=== PATIENT | female | born 1935 | race Caucasian/White ===

== ENCOUNTER 2025-04-03 13:39 | Outpatient (CLI) | payer MEDICARE, SELFPAY ==
--- OUTSIDE RECORDS SUMMARY | 2025-04-03 13:45 | XMS_ITS | Clinical Summary ---
Author Organization Healthcare Address [address] [place] [address] Care Team Providers Care Clinical Nursing Professor Name Role Phone Bravo Marcano MD Primary Care Provider Allergies Active Allergy Reactions Criticality Noted Date Comments Cefaclor Rash Low 02/05/2015 Gluten Meal Other - please document in the comment field Low 02/06/2015 Intestinal distress, lower GI symptoms, 'sores' across the arms. Iodinated Contrast Media Other - please document in the comment field Low 01/10/2025 Iv Contrast Rash Low 05/11/2018 Patient and family reported possible rash to IV contrast, patient received contrast in ED with no rash per RN. Used steroids + diphenhydramine with IV contrast Penicillins Other - please document in the comment field Low 02/05/2015 vomiting Red Dye #40 (Allura Red) Unknown - Patient states they do not know rxn details Low 01/06/2021 Doctor told her to stay away from it, unsure of reaction. Statins Other - please document in the comment field Low 03/08/2015 Multiple statins have caused tongue lesions (per patient during dental exam) and makes her mean and have mood swings. Tolerates pravastatin Sulfa Drugs Shortness of breath High 11/15/2024 Medications cholecalciferol (Vitamin D-3) 25 MCG (1000 UT) tablet Take 1 tablet (1,000 Units) by mouth 1 (one) time each day. Patient reports she takes 5-6 per week 02/20/2020 Active cyanocobalamin (Vitamin B-12) 1000 MCG tablet Take 1 tablet (1,000 mcg) by mouth 1 (one) time each day. 02/03/2018 Active Synthroid 100 MCG tablet Take 1 tablet (100 mcg) by mouth 1 (one) time each day. 11/12/2021 Active Probiotic Product (DIGESTIVE ADVANTAGE PO) Take 1 capsule by mouth 1 (one) time each day before lunch. Active ascorbic acid (Vitamin C) 1000 MG tablet Take 0.5 tablets (500 mg) by mouth 1 (one) time each day. Active CALCIUM PO Take by mouth. Active B Complex Vitamins (B COMPLEX PO) Take by mouth. Active Eliquis 5 MG tablet Take 1 tablet (5 mg) by mouth 2 (two) times a day. 03/25/2024 Active hydrOXYzine HCl (Atarax) 25 MG tablet Take 1 tablet (25 mg) by mouth every 8 (eight) hours if needed for anxiety. Takes PRN, and very rarely (has taken one time in 3 months) 02/02/2024 Active Sodium Fluoride 1.1 % paste Apply 1 pea-size to teeth 1 (one) time each day. 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 [place] [address] Mona Tomas RN Rheumatic mitral insufficiency (Primary Dx) 01/18/2025 Orders Only [facility] [address] [place] [address] Celia Maza PA Rheumatic mitral insufficiency (Primary Dx) 01/10/2025 11:20 AM EDT Office Visit [facility] [address] [place] [address] Krishan Zamudio MD Edema, unspecified type (Primary Dx); Rheumatic mitral valve annular calcification 01/10/2025 Travel from Last 3 Months Immunizations Immunization Administration Dates Next Due Influenza, high-dose, quadrivalent 07/21/2019 Family History Medical History Relation Name Comments Cardiac disorder Father Stroke Maternal Grandmother Diabetes Son Relation Name Status Comments Father Maternal Grandmother Son Social History Tobacco Use Types Packs/Day Years Used Date Smoking Tobacco: Never Smokeless Tobacco: Never Tobacco Cessation:Counseling Given: Not Answered Alcohol Use Standard Drinks/Week Comments Never 0 (1 standard drink = 0.6 oz pur e alcohol) PHQ-2 Answer Date Recorded Patient Health Questionnaire-2 Score 2 01/10/2025 PHQ-9 Answer Date Recorded Patient Health Questionnaire-9 Score 2 01/10/2025 PHQ-2A Answer Date Recorded Patient Health Questionnaire-2 Score 0 04/20/2023 Comments Unknown Sex and Gender Information Value Date Recorded Sex Assigned at Female 12/17/2021 4:22 AM EDT Legal Sex Female 8:09 PM EDT Gender Identity Female 12/17/2021 4:22 AM EDT Sexual Orientation Straight 04/09/2022 3: 57 PM EDT Last Filed Vital Signs Vital Sign Reading Time Taken Comments Blood Pressure 148/73 01/10/2025 11:24 AM EDT Pulse 82 01/10/2025 11:24 AM EDT Temperature 36.9 C (98.5 F) 11/16/2024 12:54 AM EST Respiratory Rate 18 11/16/2024 12:54 AM EST Oxygen Saturation 98% 01/10/2025 11:24 AM EDT Inhaled Oxygen Concentration - - Weight 63.6 kg (140 lb 3.4 oz) 01/10/2025 11:24 AM EDT Height 157.5 cm (5' 2 ) 01/10/2025 11:24 AM EDT Body Mass Index 25.65 01/10/2025 11:24 AM EDT Plan of Treatment Upcoming Encounters Date Type Department Care Team (Late st Contact Info) Description 04/25/2025 10:15 AM EDT Office Visit [facility] [address] [place] [address] Veto Vigil MD [address] [place] [address] 07/11/2025 4:00 PM EDT Office Visit [facility] [address] [place] [address] Krishan Zamudio MD [address] [place] [address] Health Maintenance Due Date Last Done Comments Dental Prophylaxis 1935 Dental X-Ray: Bitewings 1937 UK-Bone Density Scan 1937 UK-Medicare Annual Wellness (AWV) 1937 UKY-/Child/Adol SDOH Screenings 1937 [id number] Vaccine (#1) 1942 UKY- SDOH Screenings 1955 UKY-Adult SDOH Screenings 1955 UKY-DTaP,Tdap,and Td Vaccines (1 - Tdap) 1956 UKY-Pneumococcal Vaccine: 50+ Years (1 of 2 - PCV) 1956 UKY-Zoster Vaccines (1 of 2) 1987 UKY-RSV Vaccine: 60+ Years or (1 - 1-dose 75+ series) 2012 Dental Oral Exam 01/31/2025 08/02/2024, 12/30/2022 UKY-Influenza Vaccine (#1) 2025 07/21/2019 Dental X-Ray: Full Mouth 12/31/2025 12/30/2022 UKY-Depression Screening 01/10/2026 01/10/2025, 12/14 UKY-Obesity Intervention Completed 025, 08/02/2024, 04/25/2024, Additional history exists HPV Vaccines Aged Out No longer eligi ble based on patient's age to complete this topic UKY-HIB Vaccines Aged Out No longer e ligible based on patient's age to complete this topic UKY-Hepatitis A Vaccines Aged Out No longer eligible based on patient's age to complete this topic UKY-IPV Vaccines Aged Out No longer e ligible based on patient's age to complete this topic UKY-Rotavirus Vaccines Aged Out No lo nger eligible based on patient's age to complete this topic Medical Devices Implanted Type Area Filbert Grower Device Identifier Shelf Expiration Date Model / Serial / Lot Lead [id number] Lead-Pace Catheter Deliv 4fr 38 - [id number] - [id number] Implanted:Qty: 1 on 12/26/2021 by Milo Jim MD at [id number] 10/17/2023 [id number] / [id number] / [id number] Lead [id number] Lead Bi Aide 52 - [id number] - [id number] Implanted:Qty: 1 on 12/26/20[id number] 10/16/2023 5076-52 / [id number] / [id number] Pacemaker [place] Xt [address] Mri Dr01 - [id number] - [id number] Implanted:Qty: 1 on 12/26/2021 by Milo Jim MD at [id number] 05/27/2023 [id number] / [id number] / [id number] Lead [id number] Lead-Pace Catheter Deliv 4fr 38 - [id number] Implanted:Qty: 1 on 04/20/2022 [facility]-[id number] 02/20/2024 [id number] / [id number] / [id number] Procedures Procedure Name Priority Date/Time Associated Diagnosis Comments COMPREHENSIVE ORAL EVALUATION - NEW OR ESTABLISHED PATIENT Routine 08/02/2024 2:00 PM EST Encounter for dental examination PANORAMIC RADIOGRAPHIC IMAGE Routine 12/30/2022 3:00 PM EDT Encounter for dental examination from Last 3 Months or Most Recently Relevant to Health Maintenance Insurance [facility] MEDICARE Advance Directives * Full Code (Latest Code Status on File) Date Activated Date Inactivated Comments 04/20/2022 10:07 AM 04/20/2022 3:31 PM Question Answer Comments Patient has decision-making capacity? Yes * Full Code Date Activated Date Inactivated Comments 12/26/2021 4:30 PM 12/27/2021 5:46 PM Question Answer Comments Patient has decision-making capacity? Yes * Full Code Date Activated Date Inactivated Comments 12/26/2021 12:37 PM 12/26/2021 4:30 PM Question Answer Comments Patient has decision-making capacity? Yes * DNR/DNI Date Activated Date Inactivated Comments 12/25/2021 1:26 PM 12/26/2021 12:37 PM Daughter in room. Patient has advanced directive on file. Question Answer Comments DNR determined on/before admission date? Yes Patient has decision-making capacity? Yes * DNR/DNI Date Activated Date Inactivated Comments 12/16/2021 5:13 AM 12/18/2021 6:13 PM Question Answer Comments DNR determined on/before admission date? Yes Patient has decision-making capacity? Yes Care Teams Clinical Nursing Professor Relationship Specialty Start Date End Date Bravo Marcano MD [address] [place] [address] PCP - General 01/24/21
--- OUTSIDE RECORDS SUMMARY | 2025-04-03 13:45 | XMS_ITS | Clinical Summary ---
[facility] Address [address] [place] [address] Care Team Providers Care Self Contained Behavior Unit Teacher Name Role Phone Bravo Marcano MD Primary Care Provider [phone] Allergies Active Allergy Reactions Criticality Noted Date Comments Cefaclor Rash Low 02/05/2015 Ct Contrast Rash Low 01/11/2023 Penicillins Other (See Comments) Low 02/05/2015 vomiting Red Dye #40 (Allura Red) Unknown (See Comments) Low 01/06/2021 Doctor told her to stay away from it, unsure of reaction. Statins Other (See Comments) Low 03/08/2015 Multiple statins have caused tongue lesions (per patient during dental exam) and makes her mean and have mood swings. Tolerates pravastatin Medications levothyroxine (SYNTHROID, LEVOTHROID) 100 MCG tablet Take 1 tablet by mouth Daily. Active aspirin 81 MG EC tablet Take 1 tablet by mouth Daily. Active pravastatin (PRAVACHOL) 20 MG tablet Take 1 tablet by mouth Daily. Active Active Problems Problem Noted Date Diagnosed Date Lung nodule 01/11/2023 Family History Medical History Relation Name Comments Alcohol abuse Father Heart attack Father Lung cancer Father Asthma Mother Dementia Mother Other Mother polio Parkinsonism Mother Relation Name Status Comments Father Mother Social History Tobacco Use Types Packs/Day Years Used Date Smoking Tobacco: Former Cigarettes 0.3 5 Smokeless Tobacco: Never Tobacco Cessation:Counseling Given: Not Answered Alcohol Use Standard Drinks/Week Comments Not Currently 0 (1 standard drink = 0.6 oz pur e alcohol) Abuse Screen Answer Date Recorded Unsafe at Home or Work/School Not on file Feels Threatened by Someone? Not on file 08/2023 Does Anyone Keep You from Co ntacting Others or Doint Things Outside the Home? Not on file 06/24/2023 Physical Sign of Abuse Present Not on file 1 Housing Stability Answer Date Recorded Current Living Arrangements Not on file 06/13 Potentially Unsafe Housing Conditions Not on alexandra e 06/24/2023 Family and Community Support Answer Riki e Recorded Help with Day-to-Day Activities Not on file 06/24/2023 Lonely or Isolated Not on file 06/24/2023 Employment Answer Date Recorded Do you want help finding or keeping work or a elinor b? Not on file 06/24/2023 Disabilities Answer Date Recorded Concentrating, Remembering, or Making Decisions Difficulty Not on file 06/24/2023 Doing Errands Independently Difficulty Not on fi le 06/24/2023 Education Answer Date Recorded Help with school or training? 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 Not on file Not on file Last Filed Vital Signs Vital Sign Reading Time Taken Comments Blood Pressure 169/87 01/11/2023 1:03 PM EDT Pulse 94 01/11/2023 1:03 PM EDT Temperature 36.3 C (97.4 F) 01/11/2023 1:03 PM EDT Respiratory Rate - - Oxygen Saturation 99% 01/11/2023 1:0 3 PM EDT Inhaled Oxygen Concentration - - Weight 70.8 kg (156 lb) 01/11/2023 1:03 PM EDT Height 157.5 cm (5' 2 ) 01/11/2023 1:03 PM EDT patient reports Body Mass Index 28.53 01/11/2023 1:03 PM EDT Plan of Treatment Health Maintenance Due Date Last Done Comments DXA SCAN 1937 TDAP/TD VACCINES (1 - Tdap) 1956 Pneumococcal Vaccine 50+ (1 of 1 - PCV) 1987 ZOSTER VACCINE (1 of 2) 1987 RSV Vaccine - Adults (1 - 1- dose 75+ series) 2012 ANNUAL WELLNESS VISIT 12/17/2022 COVID-19 Vaccine (2023-25 season) 2024 INFLUENZA VACCINE 06/13/2025 07/21/2019, 07/21/2019 [facility] Advance Directives Documents on File Type Date Recorded Patient Eyelet Row Marker Expl anation POWER OF BUSINESS OWNER/ENGINEER - SCAN 01/11/2023 12:[address] surgery Care Teams Self Contained Behavior Unit Teacher Relationship Specialty Start Date End Date Bravo Marcano MD [address] [place] [address] PCP - General Family Medicine 01/11/23
== END 2025-04-03 23:59 | disposition home or self-care (01) ==
LOC: LAB 13:42
PROVIDERS: PCP Family Medicine; Visit Provider Internal Medicine Gastroenterology
DX: R69 Illness, unspecified (principal)

== ENCOUNTER 2025-04-05 08:55 | Outpatient (CLI) | payer MEDICARE, SELFPAY ==
[2025-04-05 08:58] LABS: Adenovirus F 40/41, stool Not Detected (NotDetected); Clostridium Difficile A/B, PCR Not Detected (NotDetected); Cyclospora Cayetanesis Not Detected (NotDetected); Plesimonas Shigalloides, PCR Not Detected (NotDetected); Salmonella, PCR Not Detected (NotDetected); Shiga-like toxin E coli Not Detected (NotDetected); Shigella Enterovasive E coli Not Detected (NotDetected); Vibrio, PCR Not Detected (NotDetected); Yersinia Entercolitica, PCR Not Detected (NotDetected)
--- OUTSIDE RECORDS SUMMARY | 2025-04-05 09:01 | XMS_ITS | Patient Health Record ---
Author Organization [facility] Address [address] [facility] [address] [place] [address] Care Team Providers Care Salmon Troll Fisher Name Role Phone Jennifer Hampton Unavailable [phone] Allergies Allergen (clinical drug ingredient) Drug/Non Drug Allergy documented on EMR Reaction Allergy Type Onset Date Status Information temporarily unavailable PENICILLIN V POTASSIUM (PENICILLIN V POTASSIUM TAB Unspecified Drug Allergy 02/17/2013 Active Information temporarily unavailable CECLOR (uncoded) Unspecified Allergy 02/17/2013 Active Information temporarily unavailable CRESTOR (uncoded) Unspecified Allergy 02/17/2013 Active Information temporarily unavailable LESCOL (uncoded) Unspecified Allergy 02/17/2013 Active Reason For Referral No Information Problems Problem Type SNOMED Code ICD Code Onset Dates Problem Status W/U Status Risk Notes Problem Localized infection of skin AND/OR subcutaneous tissue (972676019) Infected sinus of skin (L08.89) 12/16/19 14 Active confirmed INFECTION, SKIN AND SOFT TISSUE Problem Cervix prolapsed into vagina (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
--- OUTSIDE RECORDS SUMMARY | 2025-04-05 09:01 | XMS_ITS | Clinical Summary ---
Author Organization Healthcare Address [address] [place] [address] Care Team Providers Care Resident Care Aide Name Role Phone Bravo Marcano MD Primary Care Provider [phone] Allergies Active Allergy Reactions Criticality Noted Date [...] (12/26/2021): Added automatically from request for surgery [id number] Syncope and collapse 12/16/2021 Mitral regurgitation 02/22/2020 Allergic rhinitis 09/27/2019 Ringworm 09/27/2019 Moderate aortic regurgitation 02/18/2018 Essential (primary) hypertension 02/18/2018 Murmur 02/03/2018 Depression with anxiety 12/06/2015 Apnea spell 03/10/2015 Arteriosclerotic coronary artery disease 015 Hyperlipidemia 03/08/2015 Encounters Date Type Department Care Team Description 01/18/2025 Orders Only [facility] [place] [address] [place] [address] Mona Tomas RN Rheumatic mitral insufficiency (Primary Dx) 01/18/2025 Orders Only [facility] [place] [address] [place] [address] Celia Maza PA Rheumatic mitral insufficiency (Primary Dx) 01/10/2025 11:20 AM EDT Office Visit [facility] [place] [facility] [address] [place] [address] Krishan Zamudio MD Edema, unspecified type (Primary [...] Description 04/25/2025 10:15 AM EDT Office Visit [facility] [address] [place] [address] Veto Vigil MD [address] [place] [address] 07/11/2025 4:00 PM EDT Office Visit [facility] [address] [place] [address] Krishan Zamudio MD [address] [place] [address] Health Maintenance Due Date Last Done Comments Dental Prophylaxis 1935 Dental X-Ray: Bitewings 1937 UK-Bone Density Scan 1937 UK-Medicare Annual Wellness (AWV) 1937 UKY-/Child/Adol SDOH Screenings 1937 [id number] Vaccine (#1) 1942 UKY- SDOH Screenings 1955 [...] this topic Medical Devices Implanted Type Area Pulmonary Function Technician Device Identifier Shelf Expiration Date Model / Serial / Lot Lead [id number] Lead-Pace Catheter Deliv 4fr 38 - [id number] - [id number] Implanted:Qty: 1 on 12/26/2021 by Milo Jim MD at [id number] 10/17/2023 [id number] / [id number] / [id number] Lead 5076 Lead Bi Aide 52 - [id number] - [id number] Implanted:Qty: 1 on 12/26/20[id number] 10/16/2023 5076-52 / [id number] / [id number] Pacemaker [place] Xt Dr Mri Dr01 - [id number] - [id number] Implanted:Qty: 1 on 12/26/2021 by Milo Jim MD at [id number] 05/27/2023 [id number] / [id number] / [id number] Lead [id number] Lead-Pace Catheter Deliv 4fr 38 - [id number] Implanted:Qty: 1 on 04/20/2022 [facility]-[id number] 02/20/2024 [id number] / [id number] / [id number] Procedures Procedure Name Priority Date/Time Associated Diagnosis Comments COMPREHENSIVE ORAL EVALUATION - NEW OR ESTABLISHED PATIENT Routine 08/02/2024 2:00 PM EST Encounter for dental examination PANORAMIC RADIOGRAPHIC IMAGE Routine 12/30/2022 3:00 PM EDT Encounter for dental examination from Last 3 Months or Most Recently Relevant to Health Maintenance Insurance [facility] MEDICARE Advance Directives * Full Code [...] Patient has decision-making capacity? Yes Care Teams Resident Care Aide Relationship Specialty Start Date End Date Bravo Marcano MD [address] [place] [address] PCP - General 01/24/21
--- OUTSIDE RECORDS SUMMARY | 2025-04-05 09:02 | XMS_ITS | Clinical Summary ---
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
--- OUTSIDE RECORDS SUMMARY | 2025-04-05 09:02 | XMS_ITS | Data Portability ---
Author Organization [place] - [facility] & [place] [facility] ADMIN Address [address] [place] [address] Care Team Providers Care Manager Of Application Development Name Role Phone RISHI ASHFORD Primary Care Provider HODA HODGE Project Planner Assessment No assessment recorded. Plan of Treatment Reminders Order Date Submit Date Provider Last Modified By Organization Details Last Modified Time Details Appointments None recorded. Lab None recorded. Referral None recorded. Procedures None recorded. Surgeries None recorded. Imaging None recorded. Medication Orders magnesium oxide 400 mg (241.3 mg magnesium) tablet 2022 023 [id number], [address] [place], [id number], 3 15:43:22 Patient TargetsNo targets recorded. Patient Instructions Encounter Date Encounter Id Patient Instructions Last Modified By Organization Details Last Modified Time 04/07/2023 [id number] diet - low fodmap [email or web address] Not availab le 04/09/2023 11:22:38 learning about the low fodmap diet for irritable bowel syndrome (IBS) [email or web address] Not available 04/09/2023 11:22:38 Reason for Referral None Reported. Results Created Date Observation Date Name Description Value Unit Range Abnormal Flag Note LastModifiedBy Organization Detail LastModifiedTime 02/28/2002/27/2025 US, echoc ardio gram, trans thora cic, compl ete, w/ color flow [facility] [address] [place] [address] Phone: Fax: Name: TIANA STONE Exam Date: 025 : [birth year] 37 Age 89 years Gender : F Access ion: [id number] Physic adriana: CHRISTOPHER MCKINNEY T Facili ty: [facility] Facili ty HSV: Outpat ient Exam: ECHOCA RDIOGR AM Conclu sions: 1. Normal LV size and functi on. 2. Estima ashok left ventri cular ejecti on fracti on is 55-60% . 3. There is mild concen tric left ventri earline hypert rophy. 4. The other spatial scientist ior mitral valve leafle t is thicke eveline and restri cted in moveme nt. 5. Trace aortic valve regurg itatio n. Findin gs: Left Ventri earline:Th ere is mild concen tric left ventri earline hypert rophy. No left ventri cular thromb us noted. Normal LV size and functi on. Mitral Valve: Mitral valve is modera tely sclero tic. The other spatial scientist ior mitral valve leafle t is thicke eveline and restri cted in moveme nt. The anteri or mitral valve leafle t is thicke eveline but opens well. Tricus pid Valve: The tricus pid valve is poorly seen. Aortic Valve: The aortic valve is sclero tic with reduce d excurs ion. Trace aortic valve regurg itatio n. Pulmon ic Valve: The pulmon ic valve is poorly seen. Aorta: The aortic root is normal . Perica rdium: There is no signif icant perica rdial effusi on. Electr onical ly signed KORI RAMIREZ MD 5 8:33 AM Study Data 2D Measur ements RVIDd: 2.9 (1.9-2 .6) cm LVIDd: 3.81 (4.2-5 .9) cm LVIDs: 2.71 (2.1-4 .0) cm IVSDd: 1.91 (0.6-1 .0) cm IVSDs: 2.59 (0.7-1 .1) cm LVPWd: 1.24 (0.6-1 .0) cm LVPWs: 1.94 (0.9-1 .4) cm Aortic Root:2 .76 (2.0-3 .7) cm LA/AR Ratio: 1.21 Simpso n's EF:49. 43 % FS:28. 87 (25-43 ) % SV:35. 08 (70-10 0) ml SI:21. 62 EDV:62 .34 (67-15 5) ml EDV Index: 38.42 (35-75 ) ml/m2 ESV:27 .26 (22-58 ) ml ESV Index: 16.8 (12-30 ) ml/m2 LA:3.3 3 (3.0-4 .0) cm LV Mass:2 80 (88-22 4) g LV Mass index: 172.57 (49-11 5) g/m2 LVOT Diam:1 .93 (1.8-2 .4) cm M-MODE Measur ements EPSS:0 .51 cm Mitral Valve Regurg itatio n:Mild to Modera te Stenos is:Mil d to Modera te Mitral P.3 6 mmHg Peak E Grad:3 .31 mmHg Peak A Grad:5 .66 mmHg Legall y authen ticate d by KWAME De Oliveira MD 02-27 10:30: 31 E/A Ratio: 0.76 (.75-1 .5) E/e' Latera l:11.3 8 (<=8) E/e' Medial :13 (<=8) DS:267 .15 cm/s2 Tricus pid Valve TR Peak Grad:1 7.81 mmHg Aortic Valve Peak Grad:9 .36 (<=16) mmHg LVOT P.4 4 mmHg Pulmon ic Valve Peak Grad:3 .84 (<=3) mmHg Report for TIANA STONE [id number] on 5 Dictat ed By: KORI BROWNLEE Transc ribed By: BRANDON ACEVES Transc ribed On: 10:26 AM Electr onical ly signed by: KORI BROWNLEE Thank you for referr ing TIANA STONE to [facility]. Legall y authen ticate d by KWAME D eOliveira MD 02-27 10:30: 31 CC'ed Logic: Orderi ng Provid er: KWAME De Oliveira Attend ing Provid er: HANK Abebe Referr ing Provid er: HANK Abebe Admitt ing Provid er: HANK Abebe [facility] ([facility]) [address] , [place], [address], 02/27/2025 15:11:28 Result Notes None recorded. Problems Name Problem SNOMED Code Status Onset Date Resolution Date Notes Provider Name and Address Organization Details Recorded Time Hypothyroidism 67486576 Active 2022 Jeannette russ [place] - [facility] - [place] & [place] 14:41:07 Constipation 59029936 Active 2022 Marla Mcrae NP [address], [address], [place], [address], [place] - [facility] & [place] 3 15:42:44 Abdominal bloating 715105579 Active 2022 Marla Mcrae NP [address], [address], [place], [address], [place] - [facility] - [place] & [place] 11:19:19 Problem Notes None recorded. Procedures Surgical History Date Name Laterality Status Provider Name and Address Organization Details Recorded Time 2 cardiac pacemaker procedure completed Jeannette HARD[facility] - [facility] & [place] 04/07/2023 14:39:07 5 placement of stent in cardiac conduit completed Jeannette Giles [facility] - [facility] & [place] 04/07/2023 14:40:26 3 Colonoscopy completed Jeannette HARDIN - [facility] - [facility] & [place] 04/07/2023 14:40:04 6 repair of retina for retinal detachment completed Jeannette Giles [facility] - [facility] & [place] 04/07/2023 14:39:43 Dilation and Curettage completed Jeannette Giles [facility] - [place] & [place] 04/07/2023 14:38:03 Tonsillectomy/A denoidectomy completed Jeannette LOPEZ [facility] & [place] 04/07/2023 14:38:13 Tubal Ligation completed Jeannette Giles [place] & [place] 04/07/2023 14:38:19 Carpal tunnel surgery completed Jaennette LOPEZ [facility] & [place] 04/07/2023 14:38:34 Imaging Results None recorded. Procedure Notes None recorded. Medical Equipment None Reported. Allergies Allergen ID Allergen Name Allergen Category Reaction Reaction Severity Criticality Documentation Date Start Date Code Code System Note Provider Name and Address Organization Details Recorded Time 56425 Product containin g 3-hydroxy -3-methyl glutaryl- coenzyme A reductase inhibitor (product) medicatio n Not available Not available Not available 04/07/2023 09316 009 SNOMED WILFRED Jett [facility] & [place] 3 15:03:04 49917 penicilli n V potassium medicatio n Not available Not available Not available 04/07/2023 5 RxNorm WILFRED Jett [facility] & [place] 3 15:03:13 41346 Ceclor medicatio n Not available Not available Not available 04/07/2023 5 RxNorm WILFRED Jett [facility] & [place] 3 15:03:22 23856 Iodinated contrast media (substanc e) medicatio n Not available Not available Not available 04/07/2023 23821 2004 SNOMED WILFRED Jett [facility] & [place] 3 15:03:32 Medications Name Sig Start Date Stop Date Status Note LastModified by Organization Details LastModified Time cefpodoxime 200 mg tablet TAKE 1 TABLET BY MOUTH TWICE DAILY FOR 10 DAYS active Not Available Not Available No t Available pravastatin 40 mg tablet TAKE 1 TABLET BY MOUTH DAILY active Not Available Not Available Not Available Synthroid 100 mcg tablet TAKE ONE TABLET BY MOUTH EVERY 48 hours alternating with 88 MG active Not Available Not Available N ot Available magnesium oxide 400 mg (241.3 mg magnesium) tablet Take 1 tablet every day by oral route for 30 days. 2022 active Not Available Not Available Not Avai lable Synthroid 88 mcg tablet TAKE 1 TABLET BY MOUTH EVERY 2 DAYS ALTERNATING WITH 100MCG active Not Available Not Available Not Available Xifaxan 550 mg tablet take 1 Tablet by mouth 3 times daily active Not Available Not Available Not Available Eliquis 5 mg tablet TAKE ONE TABLET BY MOUTH DAILY active Not Available Not Available Not Available Vitals Date Recorded Body height Body weight Body mass index (BMI) Body temperature Oxygen saturation Oxygen saturation in Arterial blood by Pulse oximetry Heart rate Provider Name and Address Organization Details Last Updated DateTime 3 157.48 cm 21464.3 g 26.3 kg/m2 97 [degF] 97 % 97 % 91 /min [facility] & [place] 3 15:02:54 Social History None recorded. Functional Status Question Answer Note LastModified by Organizat ion Details LastModified Time Do you use any illicit or recreational drugs? No [email or web address] Information not available 04/07/2023 What is your level of alcohol consumption? None [email or web address] Information not available 04/07/2023 Mental Status None recorded. Family History Relationship Description Onset Age of this Age Resolved Age Notes LastModified by Organization Details LastModified Time Mother Parkinson's disease [email or web address] Not available 04/07 15:12:00 Sister Spina bifida [email or web address] Not geri ilable 04/07/2023 15:12:09 Sister Carcinoma of breast [email or web address] Not available 04/07 15:13:19 Father Heart disease [email or web address] Not available 04/07 15:12:28 Medical History Condition Response Hyperlipidemia Y Heart Disease Y Hypothyroidism Y Colon Polyps Y Gynecological HistoryNo gynecological history recorded. Obstetrics History GPAL:G 0 P 0 0 0 0 Past Encounters Encounter ID Performer Location Encounter Start Date Encounter Closed Date Diagnosis/Indication Diagnosis SNOMED-CT Code Diagnosis ICD10 Code Diagnosis Note [id number] Marla Mcrae NP [facility] [address] [place] [phone] 04/07/2023 14:28:58 04/07/2023 15:48:01 Constipation 60065036 K59.00 Chronic issue ongoing since cuff folder. Currently alternatin g episodes of constipati on with diarrhea to follow. Eating bushes baked beans occasional ly does improve symptoms however she does not eat these daily. She has tried MOM in the past and tolerated this well. She drinks primarily water. I have discussed at length daily treatment of constipati on to avoid continued alternatin g constipati on, diarrhea as well as anal leakage. Recommend daily use of fiber supplement s as well as treatment with Magnesium Oxide 400 mg daily. I have also discussed eating Smith's baked beans daily as this has helped her symptoms. I have also discussed eating 2 kiwi fruit per day. Abdominal bloating 08222 9008 R14.0 episodes of abdominal bloating and gas. Suspect likely secondary to uncontroll ed constipati on. Recommend treatment as above. I have also recommende d a low FODMAP diet, handout was provided to patient clinic today. Health Concerns Section Related Observation LastModified by Organization Detai ls LastModified Time None Recorded Concern Status LastModified by Organization Details LastModified Time None Recorded Advance Directives Directive None Recorded Payers Insurance Date Sequence Insurance Name Policy Number Policy Benz Covered Member ID Benz Member ID Guarantor Name 03/07/2025 1 [facility] (MEDICARE REPLACEMENT/A DVANTAGE - PPO) [id number] Nicole Stone [id number] Nicole Stone Notes Date Note Type Note Provider Name and Address Organization Details Recorded Time 04/07/2023 text/html 87-year-old female with past medical history hypothyroidism, hyperlipidemia, CAD with stent placement, pacemaker. Patient presents to clinic today for evaluation of constipation. She is accompanied today by her daughter. Patient reports ongoing constipation starting at a very young age. She reports increased episodes of constipation recently with associated gas, bloating, and episodes of diarrhea. She will go several days without bowel movements then experience formed stool and diarrhea to follow. She will sometimes have to manually push to help evacuate stool. Also describes some episodes of anal leakage. She has found that eating Smith's baked beans does improve constipation however does not eat these regularly for fear of diarrhea. She has used MOM prn for treatment. She does not tolerate medications and fearful to try medications for treatment of constipation due to abdominal cramping. Denies melena. Marla Mcrae NP [address] [place] [address], [address], [place], [address], [facility] & [place] 04/09/2023 11:23:35 OBGyn Episode No OBEpisode recorded.
[2025-04-08 02:09] LABS: Calprotectin, Fecal 12 ug/g (0-120)
[2025-04-08 15:17] LABS: Pancreatic Elastase, Fecal 605 (>200)
[2025-04-10 18:13] LABS: Lactoferrin, Fecal, Quant. <1.00 ug/mL(g) (0.00-7.24)
== END 2025-04-05 23:59 | disposition home or self-care (01) ==
LOC: LAB 08:56
PROVIDERS: PCP Family Medicine; Visit Provider Internal Medicine Gastroenterology
DX: R19.7 Diarrhea, unspecified (principal)
CPT/HCPCS: 82653; 83631; 83993; 87506

== ENCOUNTER 2025-04-25 14:37 | Outpatient (CLI) | payer MEDICARE, SELFPAY ==
--- OUTSIDE RECORDS SUMMARY | 2025-04-25 10:15 | XMS_ITS | Encounter Summary ---
Author Organization Healthcare Address [address] [place] [address] Care Team Providers Care Desulfurizer Hand Name Role Phone Bravo Marcano MD Primary Care Provider [phone] Reason for Referral * Imaging (Routine) - Pending Review Specialty Diagnoses / Procedures Referred By Contac t Referred To Contact Cardiology Diagnoses Rheumatic mitral valve annular calcification Procedures Echo, Adult Transthoracic Complete Veto Vigil MD [address] [place] [address] Phone: tel: fax: Referral ID Status Reason Start Date Expiration Date Visits Requested Visits Authorized [id number] Pending Review Perform Procedure 04/25/2025 10/25/2026 1 1 * Consultation (Routine) - Authorized Specialty Diagnoses / Procedures Referred By Contac t Referred To Contact Diagnoses Rheumatic mitral valve annular calcification Veto Vigil MD [address] [place] [address] Phone: tel: fax: Referral ID Status Reason Start Date Expiration Date V isits Requested Visits Authorized [id number] Authorized 04/25/2025 10/25/2026 1 1 Reason for Visit * Consultation (Routine) - Closed Specialty Diagnoses / Procedures Referred By Contac t Referred To Contact Cardiology Diagnoses Edema, unspecified type Rheumatic mitral valve annular calcification Celia Maza PA [address] [place] [address] Phone: tel: fax: Veto Vigil MD [address] [place] [address] Phone: tel: fax: Referral ID Status Reason Start Date Expiration Date V isits Requested Visits Authorized [id number] Closed Specialty Services Required 01/10/2025 07/12/2026 1 1 Encounter Details Date Type Department Care Team (Latest Contact Info) Description 04/25/2025 10:15 AM EDT Office Visit [facility] [place] [facility] [address] [facility] [place] [address] Veto Vigil MD [address] [place] [address] Rheumatic mitral valve annular calcification [...] 10:52 AM EDT documented in this encounter Plan of Treatment Upcoming Encounters Date Type Department Care Team (Late st Contact Info) Description 07/11/2025 4:00 PM EDT Office Visit [facility] [place] [address] [place] [address] Krishan Zamudio MD [address] [place] [address] 05/01/2026 10:00 AM EDT Appointment Cardiac Imaging [address] [place] [address] 05/01/2026 11:45 AM EDT Office Visit [facility] [place] [address] [place] [address] Veto Vigil MD [address] [place] [address] Scheduled Orders Name Type Priority Associated Diagnoses [...] documented as of this encounter Care Teams Desulfurizer Hand Relationship Specialty Start Date End Date Bravo Marcano MD [address] [place], [place] [id number] PCP - General 01/24/21 documented as of this encounter
--- OUTSIDE RECORDS SUMMARY | 2025-04-25 14:40 | XMS_ITS | Encounter Summary ---
Author Organization Healthcare Address [address] [place] [address] Care Team Providers Care Excavating Supervisor Name Role Phone Bravo Marcano MD Primary Care Provider [phone] Encounter Details Date Type Department Care Team (Latest Contact Info) Description 04/25/2025 Travel Social History Tobacco Use Types Packs/Day Years Used Date Smoking Tobacco: Never Passive Smoke Exposure: Past Smokeless Tobacco: Never Alcohol Use Standard Drinks/Week Comments Never 0 [...] 4:22 AM EDT Sexual Orientation Straight 04/09/2022 3 :57 PM EDT documented as of this encounter Plan of Treatment Upcoming Encounters Date Type Department Care Team (Late st Contact Info) Description 07/11/2025 4:00 PM EDT Office Visit [facility] [place] [facility] [address] [place] [address] Krishan Zamudio MD [address] [place] [address] 05/01/2026 10:00 AM EDT Appointment Cardiac Imaging [address] [place] [address] 05/01/2026 11:45 AM EDT Office Visit [facility] [place] [facility] [address] [place] [address] Veto Vigil MD [address] [place] [address] documented as of this encounter Visit Diagnoses Not on filedocumented in this encounter Additional Health Concerns Assessment Noted Time PHQ-9 Depression Total Score: 2 01/11/20 25 11:19 AM EDT A fall risk assessment has been complete d for the patient 04/25/2025 10:52 AM EDT A Body Mass Index follow-up plan has been documented for the patient 04/25/2025 11:28 AM EDT documented as of this encounter Care Teams Excavating Supervisor Relationship Specialty Start Date End Date Bravo Marcano MD [address] [place] [address] PCP - General 01/24/21 documented as of this encounter
--- OUTSIDE RECORDS SUMMARY | 2025-04-25 14:40 | XMS_ITS | Clinical Summary ---
Author Organization Healthcare Address [address] [place] [address] Care Team Providers Care Paying Teller Name Role Phone Bravo Marcano MD Primary Care Provider [phone] Allergies Active Allergy Reactions Criticality Noted Date [...] Patient reports she takes 5-6 per week 0 Active cyanocobalamin (Vitamin B-12) 1000 MCG tablet Take 1 tablet (1,000 mcg) by mouth 1 (one) time each day. 8 Active Synthroid 100 MCG tablet Take 1 tablet (100 mcg) by mouth 1 (one) time each day. 2 Active ascorbic acid (Vitamin C) 1000 MG tablet Take 0.5 tablets (500 mg) by mouth 1 (one) time each day. Active CALCIUM PO Take by mouth. Active Eliquis 5 MG tablet Take 1 tablet (5 mg) by mouth 2 (two) times a day. 4 Active hydrOXYzine HCl (Atarax) 25 MG tablet Take 1 tablet (25 mg) by mouth every 8 (eight) hours if needed for anxiety. Takes PRN, and very rarely (has taken one time in 3 months) 4 Active Sodium Fluoride 1.1 % paste Apply 1 pea-size to teeth 1 (one) time each day. 100 mL 4 Active Synthroid 88 MCG tablet Take 1 tablet by mouth. Every other day 5 Active traMADol (Ultram) 50 MG tablet Take 1 tablet by mouth every 8 hours as needed for severe pain. 5 Active methocarbamol (Robaxin) 500 MG tablet Take 1 tablet by mouth 4 times a day as needed. 5 Active Probiotic Product (DIGESTIVE ADVANTAGE PO) Take 1 capsule by mouth 1 (one) time each day before lunch. 04/25/20 25 Discontinue d(Discontin ued by another clinician) B Complex Vitamins (B COMPLEX PO) Take by mouth. 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 [place] [address] Veto Vigil MD Rheumatic mitral valve annular calcification (Primary Dx) 04/25/2025 Travel from Last 3 Months Immunizations Immunization [...] Pulse 95 04/25/2025 10:52 AM EDT Temperature 36.9 C (98.5 F) 11/16/2024 12:54 AM EST Respiratory Rate 16 04/25/2025 10:52 AM EDT Oxygen Saturation 97% 04/25/2025 10:52 AM EDT Inhaled Oxygen Concentration - - Weight 64.1 kg (141 lb 5 oz) 04/25/2025 10:52 AM EDT Height 157.5 cm (5' 2 ) 04/25/2025 10:52 AM EDT Body Mass Index 25.85 04/25/2025 10:52 AM EDT Plan of Treatment Upcoming Encounters Date Type Department Care Team (Late st Contact Info) Description 07/11/2025 4:00 PM EDT Office Visit [facility] [address] [place] [address] Krishan Zamudio MD [address] [place] [address] 05/01/2026 10:00 AM EDT Appointment Cardiac Imaging [address] [place] [address] 05/01/2026 11:45 AM EDT Office Visit [facility] [address] [place] [address] Veto Vigil MD [address] [place] [address] Health Maintenance Due Date Last Done Comments Dental Prophylaxis 1935 Dental X-Ray: Bitewings 1937 [place]-Bone Density Scan 1937 [place]-Medicare Annual Wellness (AWV) 1937 [facility]-Infant/Child/Adol SDOH Screenings 1937 [id number] Vaccine (#1) 1942 [facility]Y- SDOH Screenings 1955 [...] 01/10/2026 01/10/2025, 12/14 [facility]Y-Obesity Intervention Completed 025, 01/10/2025, 08/02/2024, Additional history exists HPV Vaccines Aged Out [...] this topic Medical Devices Implanted Type Area Area Counselor Device Identifier Shelf Expiration Date Model / Serial / Lot Lead [id number] Lead-Pace Catheter Deliv 4fr 38 - [id number] - [id number] Implanted:Qty: 1 [facility]26[id number] 10/17/2023 [id number] / [id number] / [id number] Lead 5076 Lead Bi Aide 52 - [id number] - [id number] Implanted:Qty: 1 on 12/26/2021 [id number] 10/16/2023 5076-52 / [id number] / [id number] Pacemaker [place] Xt Dr Mri Dr01 - [id number] - [id number] Implanted:Qty: 1 on 12/26/2021 by Milo Jim MD at [id number] 05/27/2023 [id number] / [id number] / [id number] Lead [id number] Lead-Pace Catheter Deliv 4fr 38 - [id number] Implanted:Qty: 1 on 04/20/2022 [id number] 02/20/2024 [id number] / [id number] / [id number] Procedures Procedure Name Priority Date/Time Associated Diagnosis Comments COMPREHENSIVE ORAL EVALUATION - NEW OR ESTABLISHED PATIENT Routine 08/02/2024 2:00 PM EST Encounter for dental examination PANORAMIC RADIOGRAPHIC IMAGE Routine 12/30/2022 3:00 PM EDT Encounter for dental examination from Last 3 Months or Most Recently Relevant to Health Maintenance Insurance [facility] MEDICARE Advance Directives * Full Code [...] Patient has decision-making capacity? Yes Care Teams Paying Teller Relationship Specialty Start Date End Date Bravo Marcano MD [address] [place] [address] [facility] - General 01/24/21
--- OUTSIDE RECORDS SUMMARY | 2025-04-25 14:40 | XMS_ITS | Patient Health Record ---
Author Organization [facility] [place] Address [address] [facility] [address] [place] [address] Care Team Providers Care Photographer Helper Name Role Phone Jennifer Hampton Unavailable [phone] Allergies Allergen (clinical drug ingredient) Drug/Non Drug [...] Problem Status W/U Status Risk Notes Problem Hemorrhoids without complication (97337862) Acute hemorrhoid (K64.9) 12/16/19 14 Active confirmed HEMORRHOIDS Problem Cervix prolapsed into vagina (550675746) Cervix prolapsed into vagina (N81.2) 02/18/20 13 Active confirmed PELVIC ORGAN PROLAPSE Problem Localized infection of skin AND/OR subcutaneous tissue (340437654) Infected sinus of skin (L08.89) 12/16/19 14 Active confirmed INFECTION, SKIN AND SOFT TISSUE Plan Of Treatment No Information Medical (General) History Medical History History ICD Code ABORTIONS: 2 Abnormal Pap Smear Prolapse Uterus Yeast Infection Hypothroidism KETOCONAZOLE 2 % EXTERNAL CREAM SYNTHROID TABLET ANALPRAM-HC 1-1 % RECTAL CREAM Surgical History Surgery Date(Month/Year) D&C x2 1974, 1959, tubal ligation 1974, torn retina 06/16/06
--- OUTSIDE RECORDS SUMMARY | 2025-04-25 14:40 | XMS_ITS | Clinical Summary ---
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
[2025-04-25 15:04] LABS: Blood Urea Nitrogen 12 mg/dl (7-17); Creatinine,Serum 0.60 mg/dl (0.52-1.04); Estimated Glomerular Filt Rate 95 ml/min (>60); GFR (African American) 114 ML/MIN (>60)
--- NOTE | 2025-04-25 15:15 | CT_ITS ---
FINAL REPORT TECHNIQUE: Axial CT of the abdomen and pelvis, without and with IV contrast. This study was performed with techniques to keep radiation doses as low as reasonably achievable, (ALARA). Individualized dose reduction techniques using automated exposure control or adjustment of mA and/or kV according to the patient's size were employed. CLINICAL HISTORY: Lower abdominal pain/weight loss/diarrhea COMPARISON: None FINDINGS: Abdomen: Multiple small hepatic cysts are present in the left dome of the liver. A left renal cyst is present as well. The remaining solid organs are unremarkable. The gallbladder is normal in appearance. No bowel obstruction or fluid collection is seen. Moderate fecal impaction is present. No evidence of dilated small bowel is seen. The central mesenteric vessels are patent. Pelvis: Pelvic bowel loops are unremarkable. The uterus and ovaries are unremarkable in appearance. The bladder is unremarkable. Right inguinal adenopathy is present measuring up to 23 mm in size. IMPRESSION: 1. No evidence of bowel obstruction or fluid collection is seen. 2. Moderate fecal impaction is noted in the colon. 3. Right inguinal adenopathy is present measuring up to 23 mm in size. Recommend 2-month follow-up CT for further evaluation. Reviewed, Interpreted and Dictated by Aye Miramontes MD Transcribed by Elisa Jesus Authenticated and [facility]
[2025-04-25] MEDS: SODIUM CHLORIDE 0.9% 10ML SYR (RAD ONLY) 10 ML IV (15:45)
[2025-04-25] MEDS: IOPAMIDOL-370 (76%);100ML BOTTLE 75 ML IV (15:46)
== END 2025-04-25 23:59 | disposition home or self-care (01) ==
LOC: RAD 14:38
PROVIDERS: PCP Family Medicine; Visit Provider Internal Medicine Gastroenterology
DX: K56.41 Fecal impaction (principal); R59.0 Localized enlarged lymph nodes
CPT/HCPCS: 36415; 74178; 82565; 84520; Q9967

== ENCOUNTER 2025-05-17 16:02 | Outpatient (CLI) | payer MEDICARE, SELFPAY ==
--- OUTSIDE RECORDS SUMMARY | 2025-04-25 10:15 | XMS_ITS | Encounter Summary ---
Author Organization Healthcare Address [address] [place] [address] Care Team Providers Care Shuttle Hand Name Role Phone Bravo Marcano MD Primary Care Provider [phone] Reason for Referral * Imaging (Routine) - Pending Review Specialty Diagnoses / Procedures Referred By Contac t Referred To Contact Cardiology Diagnoses Rheumatic mitral valve annular calcification Procedures Echo, Adult Transthoracic Complete Veto Vigil MD [address] [place] [address] Phone: tel: fax: Referral ID Status Reason Start Date Expiration Date Visits Requested Visits Authorized [id number] Pending Review Perform Procedure 04/25/2025 10/25/2026 1 1 * Consultation (Routine) - Authorized Specialty Diagnoses / Procedures Referred By Contac t Referred To Contact Diagnoses Rheumatic mitral valve annular calcification Veto Vigil MD [address] [place] [address] Phone: tel: fax: Referral ID Status Reason Start Date Expiration Date V isits Requested Visits Authorized [id number] Authorized 04/25/2025 10/25/2026 1 1 Reason for Visit * Consultation (Routine) - Closed Specialty Diagnoses / Procedures Referred By Contac t Referred To Contact Cardiology Diagnoses Edema, unspecified type Rheumatic mitral valve annular calcification Celia Maza PA [address] [place] [address] Phone: tel: fax: Veto Vigil MD [address] [place] [address] Phone: tel: fax: Referral ID Status Reason Start Date Expiration Date V isits Requested Visits Authorized [id number] Closed Specialty Services Required 01/10/2025 07/12/2026 1 1 Encounter Details Date Type Department Care Team (Latest Contact Info) Description 04/25/2025 10:15 AM EDT Office Visit [facility] [address] [place] [address] Veto Vigil MD [address] [place] [address] Rheumatic mitral valve annular calcification (Primary Dx) Social History Tobacco Use Types Packs/Day Years Used Date Smoking Tobacco: Never Passive Smoke Exposure: Past Smokeless Tobacco: Never Tobacco Cessation:Counseling Given: No Alcohol Use Standard Drinks/Week Comments Never 0 [...] Orientation Straight 04/09/2022 3: 57 PM EDT documented as of this encounter Last Filed Vital Signs Vital Sign Reading Time Taken Comments Blood Pressure 147/85 04/25/2025 10:59 AM EDT re peat BP Pulse 95 04/25/2025 10:52 AM EDT Temperature - - Respiratory Rate 16 04/25/2025 10:52 AM EDT Oxygen Saturation 97% 04/25/2025 10:52 AM EDT Inhaled Oxygen Concentration - - Weight 64.1 kg (141 lb 5 oz) 04/25/2025 10:52 AM EDT Height 157.5 cm (5' 2 ) 04/25/2025 10:52 AM EDT Body Mass Index 25.85 04/25/2025 10:52 AM EDT documented in this encounter Miscellaneous Notes * Progress Notes - Lorrie Karol KoDENISE - 04/25/2025 10:15 AM EDT Images from the original note were not included. Cardiology Consult Date of Visit 04/25/25 Referring Provider Celia Maza PA PCP Bravo Marcano MD History of Present Illness Today, Dr. Veto Vigil and I saw Nicole Stone, an 89 y.o. female at [facility] for consultation regarding mitral valve disease at the request of Celia Maza PA. 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 Findings included a moderately sclerotic mitral valve with thickened and restricted posterior leaflet motion. The anterior leaflet was also thickened but demonstrated normal opening. She reports overall good health and denies chest pain, palpitations, lightheadedness, syncope, fatigue, shortness of breath, or orthopnea. The only reported symptom is lower extremity edema, which improves overnight. She remains active within her home but limits outdoor activities due to hot weather conditions. Past Surgical History Surgical History[1] Family History Family History[2] Social History Social History[3] Current Medications Current Medications[4] Allergies Allergies[5] Review of Systems 14 point ROS negative except as listed in HPI. Vitals Visit Vitals BP (!) 147/85 Comment: repeat BP Pulse 95 Ht 1.575 m (5' 2 ) Wt 64.1 kg (141 lb 5 oz) SpO2 97% BMI 25.85 kg/m?? Physical Exam Vitals and nursing note reviewed. Constitutional: Appearance: Normal appearance. HENT: Head: Normocephalic and atraumatic. Cardiovascular: Rate and Rhythm: Normal rate and regular rhythm. Pulses: Normal pulses. Heart sounds: Normal heart sounds. Pulmonary: Effort: Pulmonary effort is normal. Breath sounds: Normal breath sounds. Musculoskeletal: General: Normal range of motion. Cervical back: Normal range of motion. Skin: General: Skin is warm and dry. Capillary Refill: Capillary refill takes less than 2 seconds. Neurological: Mental Status: She is alert and oriented to person, place, and time. Psychiatric: Mood and Affect: Mood normal. Behavior: Behavior normal. Lab Review Lab Results Component Value Date/Time WBC 7.02 11/15/20242127 RBC 4.08 11/15/20242127 HGB 13.0 11/15/20242127 HCT 38.0 11/15/20242127 Lab Results Component Value Date/Time GLUCOSE 100 (H) 11/15/20242127 BUN 15 11/15/20242127 CREATININE 0.73 11/15/20242127 NA 133 (L) 11/15/20242127 K 3.9 11/15/20242127 CL 97 11/15/20242127 Lab Results Component Value Date/Time AST 29 11/15/20242127 ALT 24 11/15/20242127 ALKPHOS 118 11/15/20242127 Lab Results Component Value Date/Time CHOL 193 04/09/2022 0853 LDLCALC 121.6 (H) 04/09/2022 0853 LDLCALC 117 02/03/2018 1106 HDL 53 04/09/2022 0853 TRIG 92 04/09/2022 0853 Lab Results Component Value Date/Time HGBA1C 5.6 02/05/2015 1605 Lab Results Component Value Date/Time TSH 0.64 12/15/2021 2257 ASSESSMENT AND PLAN Visit Diagnoses and Orders 1. Rheumatic mitral valve annular calcification Follow Up Cardiology, Echo, Adult Transthoracic Complete IMPRESSION and PLAN: #Mitral Valve Disease -Dr. Vigil personally reviewed Echo images; no intervention indicated at this time based on current valve morphology, function, and absence of significant symptoms. -no medication changes this visit FOLLOW UP: as needed A total time of 30 minutes was spent by MD and JESSICA addressing the current illness, reviewing records (prior imaging, lab work, etc), and formulating a plan. The patient is agreeable to the plan and all pertinent questions were answered. The patient's cardiac evaluation was discussed with Dr. Veto Vigil who agrees with the plan. Celia Maza PA, thank you for the consultation. Please do not hesitate to contact us with anyquestions. Karol Andrew, CONTRACT ASSOCIATE [1] Past Surgical History: Procedure Laterality Date TONSILLECTOMY N/A Tonsillectomy from [facility] TUBAL LIGATION N/A Tubal Ligation from [facility] WRIST ARTHROSCOPY W/ RELEASE OF TRANSVERSE CARPAL LIGAMENT N/A Wrist Arthroscopy With Release Of Transverse Carpal Ligament from [facility] [2] Family History Problem Relation Name Age of Onset Cardiac disorder Father Stroke Maternal Grandmother Diabetes Son [3] Social History Tobacco Use Smoking status: Never Passive exposure: Past Smokeless tobacco: Never Vaping Use Vaping status: Never Used Substance Use Topics Alcohol use: Never Drug use: Never [4] Current Outpatient Medications: ascorbic acid (Vitamin C) 1000 MG tablet, Take 0.5 tablets (500 mg) by mouth 1 (one) time each day., Disp: , Rfl: CALCIUM PO, Take by mouth., Disp: , Rfl: cholecalciferol (Vitamin D-3) 25 MCG (1000 UT) tablet, Take 1 tablet (1,000 Units) by mouth 1 (one)time each day. Patient reports she takes 5-6 per week, Disp: , Rfl: cyanocobalamin (Vitamin B-12) 1000 MCG tablet, Take 1 tablet (1,000 mcg) by mouth 1 (one) time eachday., Disp: , Rfl: Eliquis 5 MG tablet, Take 1 tablet (5 mg) by mouth 2 (two) times a day. (Patient taking differently: Take 1 tablet by mouth daily.), Disp: , Rfl: hydrOXYzine HCl (Atarax) 25 MG tablet, Take 1 tablet (25 mg) by mouth every 8 (eight) hours if needed for anxiety. Takes PRN, and very rarely (has taken one time in 3 months), Disp: , Rfl: methocarbamol (Robaxin) 500 MG tablet, Take 1 tablet by mouth 4 times a day as needed., Disp: , Rfl: Sodium Fluoride 1.1 % paste, Apply 1 pea-size to teeth 1 (one) time each day., Disp: 100 mL, Rfl: 0 Synthroid 100 MCG tablet, Take 1 tablet (100 mcg) by mouth 1 (one) time each day. (Patient taking differently: Take 1 tablet by mouth daily. Every other day), Disp: , Rfl: Synthroid 88 MCG tablet, Take 1 tablet by mouth. Every other day, Disp: , Rfl: traMADol (Ultram) 50 MG tablet, Take 1 tablet by mouth every 8 hours as needed for severe pain., Disp: , Rfl: [5] Allergies Allergen Reactions Sulfa Drugs Shortness of breath Cefaclor Rash Gluten Meal Other - please document in the comment field Intestinal distress, lower GI symptoms, 'sores' across the arms. Iodinated Contrast Media Other - please document in the comment field Iv Contrast Rash Patient and family reported possible rash to IV contrast, patient received contrast in ED with no rash per RN. Used steroids + diphenhydramine with IV contrast Penicillins Other - please document in the comment field vomiting Red Dye #40 (Allura Red) Unknown - Patient states they do not know rxn details Doctor told her to stay away from it, unsure of reaction. Statins Other - please document in the comment field Multiple statins have caused tongue lesions (per patient during dental exam) and makes her mean and have mood swings. Tolerates pravastatin documented in this encounter Plan of Treatment Upcoming Encounters Date Type Department Care Team (Late st Contact Info) Description 07/11/2025 4:00 PM EDT Office Visit [facility] [place] [address] [facility] [address] [address] Krishan Zamudio MD [address] [place] [address] 05/01/2026 10:00 AM EDT Appointment Cardiac Imaging [address] [place] [address] 05/01/2026 11:45 AM EDT Office Visit [facility] [address] [address] Veto Vigil MD [address] [place] [phone] Scheduled Orders Name Type Priority Associated Diagnoses Orde r Schedule Echo, Adult Transthoracic Complete Echocardiography Routine Rheumatic mitral valve annular calcification Expected: 04/25/2026, Expires: 04/25/2027 Scheduled Referrals Name Type Priority Associated Diagnoses Orde r Schedule Follow Up Cardiology Outpatient Referral Routine Rheumatic mitral valve annular calcification Expected: 04/25/2026, Expires: 10/26/2026 documented as of this encounter Visit Diagnoses Diagnosis Rheumatic mitral valve annular calcification- Primary documented in this encounter Additional Health Concerns Assessment Noted Time PHQ-9 Depression Total Score: 2 01/11/20 25 11:19 AM EDT A fall risk assessment has been complete d for the patient 04/25/2025 10:52 AM EDT A Body Mass Index follow-up plan has been documented for the patient 04/25/2025 11:28 AM EDT documented as of this encounter Care Teams Shuttle Hand Relationship Specialty Start Date End Date Bravo Marcano MD [address] [place] [address] PCP - General 01/24/21 documented as of this encounter
--- OUTSIDE RECORDS SUMMARY | 2025-05-17 16:06 | XMS_ITS | Clinical Summary ---
Author Organization Healthcare Address [address] [place] [address] Care Team Providers Care Retail Route Supervisor Name Role Phone Bravo Marcano MD Primary Care Provider [phone] Allergies Active Allergy Reactions Criticality Noted Date [...] (12/26/2021): Added automatically from request for surgery [id number] Syncope and collapse 12/16/2021 Mitral regurgitation 02/22/2020 Allergic rhinitis 09/27/2019 Ringworm 09/27/2019 Moderate aortic regurgitation 02/18/2018 Essential (primary) hypertension 02/18/2018 Murmur 02/03/2018 Depression with anxiety 12/06/2015 Apnea spell 03/10/2015 Arteriosclerotic coronary artery disease 015 Hyperlipidemia 03/08/2015 Encounters Date Type Department Care Team Description 04/25/2025 10:15 AM EDT Office Visit [facility] [place] [facility] [address] [place] [address] Veto Vigil MD Rheumatic mitral valve annular [...] Description 07/11/2025 4:00 PM EDT Office Visit [facility] beds at [facility] [address] [place] [address] Krishan Zamudio MD [address] [place] [address] 05/01/2026 10:00 AM EDT Appointment Cardiac Imaging [address] [place] [address] 05/01/2026 11:45 AM EDT Office Visit [facility] 234 beds at the [facility] [address] [place] [address] Veto Vigil MD [address] [place] [address] Health Maintenance Due Date Last Done Comments Dental Prophylaxis 1935 Dental X-Ray: Bitewings 1937 [place]-Bone Density Scan 1937 [place]-Medicare Annual Wellness (AWV) 1937 [place]-/Child/Adol SDOH Screenings 1937 [id number] Vaccine (#1) 1942 [facility]- SDOH Screenings 1955 [...] this topic Medical Devices Implanted Type Area Administrative Support Clerk Device Identifier Shelf Expiration Date Model / Serial / Lot Lead [id number] Lead-Pace Catheter Deliv 4fr 38 - [id number] - [id number] Implanted:Qty: 1 on 12/26/[id number] 10/17/2023 [id number] / [id number] / [id number] Lead 5076 Lead Bi Aide 52 - [id number] - [id number] Implanted:Qty: 1 on 12/26/2021 [id number] 10/16/2023 5076-52 / [id number] / [id number] Pacemaker [place] Xt Dr Mri Dr01 - [id number] - [id number] Implanted:Qty: 1 on 12/26/2021 by Milo Jim MD at [id number] 05/27/2023 W1DR01 / [id number] / [id number] Lead [id number] Lead-Pace Catheter Deliv 4fr 38 - [id number] Implanted:Qty: 1 on 04/20/2022 [id number] 02/20/2024 [id number] / [id number] / [id number] Procedures Procedure Name Priority Date/Time Associated Diagnosis Comments COMPREHENSIVE ORAL EVALUATION - NEW OR ESTABLISHED PATIENT Routine 08/02/2024 2:00 PM EST Encounter for dental examination PANORAMIC RADIOGRAPHIC IMAGE Routine 12/30/2022 3:00 PM EDT Encounter for dental examination from Last 3 Months or Most Recently Relevant to Health Maintenance Insurance [facility] MEDICARE Advance Directives * Full Code [...] Patient has decision-making capacity? Yes Care Teams Retail Route Supervisor Relationship Specialty Start Date End Date Bravo Marcano MD [address] [place] [address] [facility] - General 01/24/21
--- OUTSIDE RECORDS SUMMARY | 2025-05-17 16:06 | XMS_ITS | Encounter Summary ---
Author Organization Healthcare Address [address] [place] [address] Care Team Providers Care Brick Carrier Name Role Phone Bravo Marcano MD Primary Care Provider [phone] Encounter Details Date Type Department Care Team [...] Description 07/11/2025 4:00 PM EDT Office Visit [facility] [place] [facility] [address] [place] [address] Krishan Zamudio MD [address] [place] [address] 05/01/2026 10:00 AM EDT Appointment Cardiac Imaging [address] [place] [address] 05/01/2026 11:45 AM EDT Office Visit [facility] [place] [facility] [address] [place] [address] Veto Vigil MD [address] [place] [address] documented as of this encounter [...] documented as of this encounter Care Teams Brick Carrier Relationship Specialty Start Date End Date Bravo Marcano MD [address] [place] [address] PCP - General 01/24/21 documented as of this encounter
--- OUTSIDE RECORDS SUMMARY | 2025-05-17 16:06 | XMS_ITS | Clinical Summary ---
[facility] Address [address] [place] [address] Care Team Providers Care Script Developer Name Role Phone Bravo Marcano MD Primary Care Provider [phone] Allergies Active Allergy Reactions Criticality Noted Date [...] help finding or keeping work or a elinro b? 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
[2025-05-17 16:18] LABS: Hematocrit 37.5 % (37.0-47.0); Hemoglobin 12.7 g/dL (12.2-16.2); Immature Granulocytes % 0.2 %; Mean Corpuscular HGB Conc 33.9 g/dL (31.8-35.4); Mean Corpuscular Hemoglobin 31.5 pg (27.0-31.2); Mean Corpuscular Volume 93.1 fl (81-99); Nucleated Red Blood Cells % 0 %; Platelet Count 226 K/mm3 (142-424); Red Blood Count 4.03 M/mm3 (4.20-5.40); Red Cell Distribution Width-SD 43.3 fL; White Blood Count 6.6 K/mm3 (4.8-10.8)
[2025-05-17 17:39] LABS: Alanine Aminotransferase 14 U/L (12-78); Albumin Level 4.1 g/dl (3.5-5.0); Albumin/Globulin Ratio 1.5 (1.1-1.8); Alkaline Phosphatase 80 U/L (38-126); Anion Gap 12.0 mEq/L (5-15); Aspartate Amino Transferase 30 U/L (14-36); Bilirubin,Total 0.2 mg/dl (0.2-1.3); Blood Urea Nitrogen 12 mg/dl (7-17); Calcium 9.2 mg/dl (8.4-10.2); Carbon Dioxide 28 mmol/L (22.0-30.0); Chloride 97 mmol/L (98-107); Creatinine,Serum 0.70 mg/dl (0.52-1.04); Estimated Glomerular Filt Rate 79 ml/min (>60); GFR (African American) 96 ML/MIN (>60); Globulin 2.8 g/dL (1.3-3.2); Glucose 56 mg/dl (74-100); Potassium 4.0 mmoL/L (3.5-5.1); Sodium 133 mmol/L (136-145); Total Protein,Serum 6.9 g/dl (6.3-8.2)
[2025-05-17 17:45] LABS: C-Reactive Protein 2.1 mg/L (0-4)
[2025-05-17 18:16] LABS: Iron 78 ug/dL (37-170)
[2025-05-17 18:26] LABS: Total Iron Binding Capacity 334 ug/dL (265-497)
[2025-05-17 18:53] LABS: Ferritin 76.3 ng/ml (11.1-264)
== END 2025-05-17 23:59 | disposition home or self-care (01) ==
LOC: LAB 16:03
PROVIDERS: PCP Family Medicine; Visit Provider Internal Medicine Gastroenterology
DX: K74.69 Other cirrhosis of liver (principal); B19.20 Unspecified viral hepatitis C without hepatic coma; R10.30 Lower abdominal pain, unspecified; R19.4 Change in bowel habit; R19.7 Diarrhea, unspecified
CPT/HCPCS: 36415; 80053; 82728; 83540; 83550; 85025; 85651; 86140

== ENCOUNTER 2025-07-11 06:04 | Day surgery (SDC) | payer MEDICARE, SELFPAY ==
--- NOTE | 2025-07-05 15:49 | EXP.HP ---
History of Present Illness *Admission Date: 07/11/25 *History of present illness: Mrs. Stone is an 89-year-old female who is here for diagnostic colonoscopy. She did have diarrhea that began in January 2025. The patient had been on several antibiotics for UTIs (Bactrim, nitrofurantoin, Cipro, to cephalosporins and most recently Xifaxan). Her diarrhea began after the initial antibiotics. She has had no C. difficile testing. The patient does state that she has 1 very loose watery bowel movement in the mornings with explosive gas and watery diarrhea. She was initially having some minor leakage but has had no bouts of fecal incontinence. She has had some gas discomfort/lower abdominal discomfort. She also lost about 20 pounds in 2 weeks but this has stabilized. She initially took a probiotic (Align) but did not derive any improvement and actually felt this was making her worse. She now was eating a lot of yogurt. She reports no rectal bleeding or mucus with her bowel movements. The patient does report prior to this a long-term baseline of constipation and sometimes would have bowel impactions. She is had the chronic constipation for most of her life. The patient's last colonoscopy was 12 years ago (2012) and was essentially normal. She still has some gassiness and bloating. The patient's CAT scan that was performed did show fecal retention and high fecal burden. [facility] Disclaimer: The information contained in this section may have been updated after the patient was seen, as this information can be updated by other users. Medical History Hyperlipidemia Renate's disease CAD (coronary artery disease) Surgical History History of eye surgery History of permanent cardiac pacemaker placement Hx of carpal tunnel repair H/O tubal ligation History of tonsillectomy History of D&C Family History Other Alcoholism Cancer Coronary artery disease Social History (Updated 07/11/25 @ 06:23 by Charissa Montague RN) Smoking Status: Never smoker alcohol intake: never substance use type: denies use current occupational status: retired Travel in the last 8 weeks?: None Have you lived/traveled outside [place] in past 30 days?: No Contact w/someone who lives/traveled outside US past 30 days?: No Exposure to someone with infectious disease in past 14 days?: No Do you have a fever (greater than 100.4 F or 38 C)?: No Have you tested positive for COVID-19?: No Exposed to someone with COVID-19 in past 14 days?: No Do you have a sore throat?: No Do you have a cough?: No Do you have any weakness?: No Are you experiencing any nausea/vomitting?: Yes Do you have any diarrhea?: No Are you experiencing any unusual bleeding?: No Do you have any muscle aches/pain?: No Do you have any abdominal pain?: No Are you experiencing loss of taste or smell?: No Other Medical History Have you received the Pneumonia Vaccine: No Review of Systems Review of Systems Review of systems (narrative): Negative *Cardiovascular Comments: Negative *Gastrointestinal Comments: Negative *Genitourinary Comments: Negative *Musculoskeletal Comments: Negative *Neurologic Comments: Negative Meds Home Medications and Allergies Home Medications ?Medication ?Instructions ?Recorded ?Confirmed ?Type apixaban 5 mg tablet (Eliquis) 5 mg PO ONCE 04/03/25 07/11/25 History levothyroxine 100 mcg tablet 100 mcg PO Q48H 04/03/25 07/11/25 History (Synthroid) levothyroxine 88 mcg tablet 88 mcg PO DAILY 04/03/25 07/11/25 History (Synthroid) calcium polycarbophil 625 mg 1,250 mg PO DAILY 05/17/25 07/11/25 History tablet (FiberCon) sodium,potassium,mag sulfates 17.5 See Rx Instructions PO .COMPLEX 06/27/25 07/11/25 Rx gram-3.13 gram-1.6 gram oral soln #354 mL (Suprep Bowel Prep Kit) fexofenadine 60 mg tablet 60 mg PO BID 07/06/25 07/11/25 History New Prescriptions to Start Prescriptions: Allergies Allergy/AdvReac Type Severity Reaction Status Date / Time Penicillins Allergy Severe Nausea Verified 07/11/25 06:21 [id number] Reductase Allergy Severe Other Verified 07/11/25 06:21 Inhibitor Sulfa (Sulfonamide Allergy Severe Weakness Verified 07/11/25 06:21 Antibiotics) IV contrast AdvReac Rash Uncoded 05/17/25 15:17 Exam *Routine HEENT Exam Head: Present normocephalic Eye: Present EOMI and PERRL ENT: Present mucous membranes moist *Routine Neck Exam Neck: Present supple *Routine Respiratory Exam Respiratory: Present CTA bilaterally *Routine Cardiovascular Exam Cardiovascular: Present RRR *Routine Abdominal Exam Abdominal: Present soft and normoactive bowel sounds; Absent tenderness *Routine Rectal Exam Rectal:: deferred *Routine Genitalia Exam Genitalia:: deferred *Routine Extremities Exam Extremities: Absent cyanosis, clubbing or edema *Routine Skin Exam Skin: Present warm; Absent rash *Routine Neurological Exam Neurological: Present alert and oriented X3 Assessment and Plan *Assessment and plan (1) Change in bowel habits: Status: Acute Category: Medical Code(s): R19.4 - Change in bowel habit (2) Incomplete defecation: Status: Acute Category: Medical Code(s): R15.0 - Incomplete defecation (3) Fecal impaction: Status: Acute Category: Medical Code(s): K56.41 - Fecal impaction (4) Gassiness: Status: Acute Category: Medical Code(s): R14.0 - Abdominal distension (gaseous) (5) Weight loss: Status: Acute Category: Medical Code(s): R63.4 - Abnormal weight loss (6) Lower abdominal pain: Status: Acute Category: Medical Code(s): R10.30 - Lower abdominal pain, unspecified Plan A/P: 1. Incomplete defecation with change in bowel habits and fecal impaction is the preprocedural diagnosis. The patient also has lower abdominal pain, gassiness and weight loss. The patient will be anesthetized/sedated using MAC sedation. The patient has been seen and examined. Cardiac and lung assessment prior to the examination is stable. Proceed with planned diagnostic colonoscopy.
[2025-07-06 12:21] VITALS: BMI 23.8
[2025-07-11] VITALS (7 sets, daily range): BP systolic 78–140; BP diastolic 48–67; PULSE 71–93; RESP 16–18; TEMP 36.4; O2SAT 96–100; BMI 23.8
--- NOTE | 2025-07-11 06:22 | P.PCN_ITS ---
[facility] Procedure Note Date: 07/11/25 Time: 07:51 Procedure Note:: Colonoscopy Procedure Report: Colonoscopy with cold biopsies Endoscopist: Wilfredo Hong II, MD Referring physician: Bravo Marcano MD Date of Procedure: July 11, 2025 Equipment: Olympus [id number] adult colonoscope Sedation: MAC sedation Indication: Mrs. Stone is an 89-year-old female who is here for diagnostic colonoscopy. She did have diarrhea that began in January 2025. The patient had been on several antibiotics for UTIs (Bactrim, nitrofurantoin, Cipro, to cephalosporins and more recently Xifaxan). Her diarrhea began after the initial antibiotics. She did have PCR testing on 04/05/2025 that showed no microbial pathogens. Her fecal calprotectin was 12 and her stool lactoferrin was less than 1.00. Her fecal elastase was 605 mcg/g. The patient does state that she has 1 very loose watery bowel movement in the mornings with explosive gas and watery diarrhea. She was initially having some minor leakage but has had no bouts of fecal incontinence. She has had some gas discomfort/lower abdominal discomfort. She also lost about 20 pounds in 2 weeks but this has stabilized. She initially took a probiotic (Align) but did not derive any improvement and actually felt this was making her worse. She now was eating a lot of yogurt. She reports no rectal bleeding or mucus with her bowel movements. The patient does report prior to this a long-term baseline of constipation and sometimes would have bowel impactions. She has had the chronic constipation for most of her life. The patient's last colonoscopy was 12 years ago (2012) and was essentially normal. She still has some gassiness and minor bloating. The patient has improved with FiberCon 2 tablets every morning. We had also recommended pelvic floor physical therapy. The patient's CAT scan that was performed did show fecal retention and high fecal burden. Procedure: Prior to the procedure, a history and physical exam was performed, and patient's medications and allergies were reviewed. The risks, benefits and alternatives of the sedation and procedure were discussed with the patient. All questions were answered and informed consent was obtained. The patient was brought to the procedure room. Patient identification and proposed procedure were verified by the physician and the nurse. The patient was placed in a left lateral decubitus position and the scope was passed under direct vision. Throughout the procedure, the patient's blood pressure, pulse, and oxygen saturations were monitored continuously. The colonoscopy was accomplished without difficulty. The patient tolerated the procedure well. Findings: On digital rectal examination there was normal rectal tone. There were no external hemorrhoids. The colonoscope was introduced through the anal canal to the rectum and advanced to the cecum. The ileocecal valve and appendiceal orifice were identified. The scope was advanced a short distance into the ileum which appeared grossly normal. The scope was then withdrawn into the colon. The cecum, ascending and transverse colon and mucosa were grossly normal. Random cold biopsies were taken from the right colon to rule out microscopic colitis. There were scattered diverticuli throughout the descending and sigmoid colon (LEFT colon). The rectum itself was normal. Upon retroflexion within the rectum there were grade 1-2 internal hemorrhoids. The preparation was good throughout with [place] Preparation Score of 8 out of 9. The cecal time was 12 minutes. Impression: 1. Left-sided diverticulosis 2. Grade 1-2 internal hemorrhoids Plan: I will follow-up the biopsies to rule out microscopic colitis. If the biopsies are normal, would consider increasing FiberCon to 2 tablets twice daily. I would also consider low-dose alosetron.
[2025-07-11] MEDS: LACTATED RINGERS 1000ML 1,000 ML 50 ML IV (06:34)
--- NOTE | 2025-07-11 07:18 | P.PNANES_ITS ---
[facility] Disclaimer: The information contained in this section may have been updated after the patient was seen, as this information can be updated by other users. Medical History Hyperlipidemia Renate's disease CAD (coronary artery disease) Surgical History History of eye surgery History of permanent cardiac pacemaker placement Hx of carpal tunnel repair H/O tubal ligation History of tonsillectomy History of D&C Family History Other Alcoholism Cancer Coronary artery disease Social History (Updated 07/11/25 @ 06:23 by Charissa Montague RN) Smoking Status: Never smoker alcohol intake: never substance use type: denies use current occupational status: retired Travel in the last 8 weeks?: None Have you lived/traveled outside [place] in past 30 days?: No Contact w/someone who lives/traveled outside [place] past 30 days?: No Exposure to someone with infectious disease in past 14 days?: No Do you have a fever (greater than 100.4 F or 38 C)?: No Have you tested positive for COVID-19?: No Exposed to someone with COVID-19 in past 14 days?: No Do you have a sore throat?: No Do you have a cough?: No Do you have any weakness?: No Are you experiencing any nausea/vomitting?: Yes Do you have any diarrhea?: No Are you experiencing any unusual bleeding?: No Do you have any muscle aches/pain?: No Do you have any abdominal pain?: No Are you experiencing loss of taste or smell?: No [facility] Anesthesia Checklist Patient Identification Patient Identification: Arm Band Structural Data Admitted From: Home Planned Operative Procedure/s: Colonoscopy Consent for Planned Operative Procedure(s) Verified: Yes Verified Documents: Surgical Consent and History and Physical NPO Status Verified Time NPO: 04:00 (finished prep) Additional verifications Anesthesia Reactions: No Airway Assessment Mallampati Score:: Class II C-Spine Mobility Assessed: Yes TMJ Mobility Assessed: Yes Dentition: Dentures-good fit (upper denture/lower partial removed) Neurological Assessment Level of Consciousness: Awake, Alert and Appropriate Anesthesia Plan Anesthesia Risk discussed: Yes Anesthesia Plan: Verified ASA Class: III Anesthesia Type: MAC
== END 2025-07-11 09:08 | disposition home or self-care (01) ==
PROVIDERS: PCP Family Medicine; Visit Provider Internal Medicine Gastroenterology
PROC: 0DJD8ZZ Inspection of Lower Intestinal Tract, Via Natural or Artificial Opening Endoscopic (ICD-10-PCS; CPT 45378; principal; 2025-07-11 07:30)
DX: K52.832 Lymphocytic colitis (principal); K57.30 Diverticulosis of large intestine without perforation or abscess without bleeding; K64.0 First degree hemorrhoids; K64.1 Second degree hemorrhoids; K56.41 Fecal impaction; N39.0 Urinary tract infection, site not specified; E06.3 Autoimmune thyroiditis; I25.10 Atherosclerotic heart disease of native coronary artery without angina pectoris; Z79.01 Long term (current) use of anticoagulants; Z88.0 Allergy status to penicillin; Z88.2 Allergy status to sulfonamides; Z88.8 Allergy status to other drugs, medicaments and biological substances
CPT/HCPCS: 45380; 88305; J2003; J2704; J7120